=== PATIENT | male | born 1965 | race Caucasian/White ===

== ENCOUNTER 2016-10-23 18:38 | Inpatient (IN) ==
[2016-10-23] MEDS ORDERED: *HR* FentaNYL (PF) 100 MCG/2 ML VIAL IVP ONE (20:51)
[2016-10-23] MEDS ORDERED: Lidocaine/EPI 1:100k 1% 20 ML VIAL INFILT ONE (20:51)
[2016-10-23] MEDS ORDERED: Piperacillin/Tazobactam 4.5 GM in D5% in Water (Mini-Bag+) 100 ML IVPB ONE (21:43)
--- NOTE | 2016-10-23 21:43 | Emergency Department Note ---
Disposition Clinical Impression: Facial cellulitis Abscess of skin or subcutaneous tissue Qualifiers: Site of cutaneous abscess: face Qualified Code(s): L02.01 - Cutaneous abscess of face Disposition: Admitted As Inpatient Condition: Good Referrals: Lemuel Sun MD [Primary Care Provider] - Forms: ED Satisfaction Letter Time of Disposition: 21:48 Skin/Abscess/FB HPI Chief complaint: ED Skin/Abscess/Foreign Body Stated complaint: sent for admission per Dr. Sun Time Seen by Provider: 10/23/16 20:42 Source: patient, family Mode of arrival: ambulatory Limitations: no limitations Nursing Notes Reviewed: Yes Vital Signs Reviewed: Yes HPI Narrative: 41-year-old male with history of HIV without AIDS presents with outpatient diagnosis of left-sided facial cellulitis. He was sent in for treatment by his primary care physician. He states that he had a bump in the left side of his mustache that was red and painful that began 2 or 3 days ago. Since then, he has had redness surrounding the area that has been painful along with swelling to the left side of his face. Yesterday, he was seen in the [place] emergency department for this and started on antibiotics. Today, he was seen by his primary care physician in follow-up who sent him in for IV antibiotics. He denies any pain with motion of his eye, trismus, vomiting, nausea, fever or chills, respiratory symptoms, GI or symptoms. Home Medications Medication Instructions Recorded Confirmed Clopidogrel [Plavix] 75 mg PO DAILY 12/31/15 10/23/16 Emtricitabine/Tenofovir [Truvada] 1 tab PO DAILY 10/23/16 10/23/16 Gabapentin [Gabapentin] 800 mg PO TID 10/23/16 10/23/16 Lopinavir/Ritonavir [Kaletra] 2 tab PO BID 10/23/16 10/23/16 Meloxicam [Meloxicam] 15 mg PO DAILY 10/23/16 10/23/16 Mirtazapine [Mirtazapine] 30 mg PO HS 10/23/16 10/23/16 Previous Rx's Medication Instructions Recorded Clindamycin HCl [Cleocin HCl] 150 mg PO QID #40 capsule 10/22/16 Sulfamethoxazole/Trimeth DS 1 each PO BID #20 tablet 10/22/16 [Bactrim DS] Tramadol HCl [Ultram] 50 mg PO QID PRN #14 tab 10/22/16 Allergies Allergy/AdvReac Type Severity Reaction Status Date / Time No Known Allergies Allergy Verified 12/31/15 07:54 All systems ED: reviewed and negative except as stated. Past Medical History - Past Medical History Attestation: Yes The following information was validated with the patient. Source: patient Medical history: Reports: hepatitis, HIV/AIDS, other Psychiatric history: Reports: no psych history - Social History Smoking Status: Current every day smoker Smokeless Tobacco Status: No Alcohol use: Reports: none Drug use: Reports: none Physical Exam - Head Head exam: atraumatic, normocephalic, normal inspection - Eye Eye exam: Present: normal appearance, PERRL, EOMI and painless. - ENT There is indurated tender area to the left upper lip with small spontaneous purulent drainage. There is mild surrounding cellulitis superior to this. - Neck Neck exam: Present: normal inspection, full ROM, trachea midline - Chest Chest inspection: Present: normal inspection, symmetric chest wall rise - Respiratory Respiratory exam: Clear to auscultation bilaterally without wheezes rales or rhonchi Cardiovascular Cardiovascular exam: Present: regular rate, normal rhythm, normal heart sounds - Abdominal Exam Abdominal exam: Present: soft, Non-Tender. Absent: tenderness, distention, guarding, rebound, rigidity - Extremities Exam Extremities exam: Present: normal inspection, full ROM - Expanded Lower Extremity Exam Hip/Pelvis exam: Present: normal inspection, full ROM - Back Exam Back exam: Present: normal inspection, full ROM. Absent: tenderness, CVA tenderness (R), CVA tenderness (L) - Neurological Exam Neurological exam: Present: alert, oriented X3, CN II-XII intact - Psychiatric Psychiatric exam: Present: normal affect, normal mood - Skin Skin exam: Present: warm, dry, intact, normal color - General Limitations: no limitations General appearance: alert, in no apparent distress Course - Reevaluation(s) Reevaluation #1: Incision and drainage of the left upper lip abscess performed by myself. 2 mL' s of lidocaine 1% with epinephrine was used for anesthesia after prep with Betadine swab. A 1 cm linear incision was made with expulsion of a small amount of purulent drainage. Patient tolerated the procedure well without complications. Time: 21:46 Reevaluation #2: Patient accepted by Dr. Hernandez to the hospitalist service. Anaerobic wound culture and Gram stain obtained per his request. Time: 22:29 Vital Signs Temperature 98.7 F 10/23/16 18:55 Pulse Rate 95 10/23/16 18:55 Respiratory Rate 16 10/23/16 18:55 Blood Pressure 118/80 10/23/16 18:55 O2 Sat by Pulse Oximetry 95 10/23/16 18:55 Temperature 98.7 F 10/23/16 18:55 Pulse Rate 95 10/23/16 18:55 Respiratory Rate 16 10/23/16 18:55 Blood Pressure 118/80 10/23/16 18:55 O2 Sat by Pulse Oximetry 95 10/23/16 18:55 Oxygen Delivery Oxygen Delivery Room Air Skin/Abscess/Foreign Body - Lab Data Result diagrams: 10/23/16 21:36 10/23/16 21:36 Lab Results 10/23/16 10/23/16 Range/Units 21:36 21:36 WBC 16.0 H (4.3-11.1) K/mcL RBC 5.18 (4.19-5.50) M/mcL Hgb 16.1 (12.9-16.9) g/dL Hct 47.6 (37.5-50.1) % MCV 91.9 (83.0-100.0) fL MCH 31.1 (28.0-33.3) pg MCHC 33.8 (31.6-35.5) g/dL RDW 12.6 (11.5-14.5) % Plt Count 349 (140-400) K/mcL MPV 9.3 L (9.4-12.4) fL Immature Gran % 0.4 (0-4) % Seg Neutrophils % 74.4 % Lymphocytes % 17.9 % Monocytes % 5.6 % Eosinophils % 1.3 % Basophils % 0.4 % Neutrophils # 11.9 H (1.6-8.9) K/mcL Lymphocytes # 2.9 (0.6-4.6) K/mcL Monocytes # 0.9 (0.0-1.3) K/mcL Eosinophils # 0.2 (0.0-0.6) K/mcL Basophils # 0.1 (0.0-0.2) K/mcL Sodium 137 (136-145) mEq/L Potassium 3.5 (3.5-4.5) mEq/L Chloride 101 (98-109) mEq/L Carbon Dioxide 23 (19-29) mEq/L BUN 10 (8-26) mg/dL Creatinine 1.18 (0.72-1.25) mg/dL Est GFR ( Amer) > 60 (> 60) Est GFR (Non-Af Amer) > 60 (> 60) BUN/Creatinine Ratio 8 (6-26) Glucose 103 H (70-99) mg/dL Calculated Osmolality 283 (280-300) Calcium 10.2 (8.6-10.8) mg/dL Attestation Statement - Attestation Attestation: I examined this patient and my medical decision-making was reviewed with the FAILURE ANALYSIS TECHNICIAN/PA/Advanced Practice Nurse/Resident Physician. I agree with the documented findings, disposition and treatment plan as described except to the extent set forth below. Patient presents emergency Department with the chief complaint abscess on his face. Onset a few days ago. Sent in by PCP. On exam the patient has erythema and fluctuance to the left mandibular area. Plan. I&D performed with minimal result. Patient is on IV antibiotic. We will admit to hospitalists with concern for his immunocompromise secondary to his HIV.
[2016-10-23] MEDS ORDERED: Vancomycin 1,500 MG in D5% in Water 250 ML IVPB STA (21:44)
[2016-10-23 21:47] LABS: Basophils # 0.1 K/mcL (0.0-0.2); Basophils % 0.4 %; Eosinophils # 0.2 K/mcL (0.0-0.6); Eosinophils % 1.3 %; Hematocrit 47.6 % (37.5-50.1); Hemoglobin 16.1 g/dL (12.9-16.9); Immature Granulocytes % 0.4 % (0-4); Lymphocytes # 2.9 K/mcL (0.6-4.6); Lymphocytes % 17.9 %; Mean Corpuscular HGB Conc 33.8 g/dL (31.6-35.5); Mean Corpuscular Hemoglobin 31.1 pg (28.0-33.3); Mean Corpuscular Volume 91.9 fL (83.0-100.0); Mean Platelet Volume 9.3 fL (9.4-12.4); Monocytes # 0.9 K/mcL (0.0-1.3); Monocytes % 5.6 %; Neutrophils # 11.9 K/mcL (1.6-8.9); Platelet Count 349 K/mcL (140-400); Red Blood Count 5.18 M/mcL (4.19-5.50); Red Cell Distribution Width 12.6 % (11.5-14.5); Segmented Neutrophils % 74.4 %
[2016-10-23 22:01] LABS: BUN/Creatinine Ratio 8 (6-26); Blood Urea Nitrogen 10 mg/dL (8-26); Calcium 10.2 mg/dL (8.6-10.8); Carbon Dioxide 23 mEq/L (19-29); Chloride 101 mEq/L (98-109); Glucose 103 mg/dL (70-99); Osmolality,Calculated 283 (280-300); Potassium 3.5 mEq/L (3.5-4.5); Sodium 137 mEq/L (136-145); eGFR For African Americans > 60 (> 60); eGFR For Non-African Americans > 60 (> 60)
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
[2016-10-24] MEDS ORDERED: Vancomycin 1,250 MG in D5% in Water 250 ML IVPB SCH (03:00)
[2016-10-24] MEDS: *HR* Heparin 5,000 UNIT/ML VIAL SQ SCH ×3 (06:23→22:28)
[2016-10-24] MEDS: Gabapentin 400 MG CAPSULE PO SCH ×3 (09:59→21:04)
[2016-10-24] MEDS: Piperacillin/Tazobactam 3.375 GM in D5% in Water (Mini-Bag+) 100 ML IVPB SCH ×2 (10:00→15:43)
[2016-10-24] MEDS: Vancomycin 1,250 MG in D5% in Water 250 ML IVPB SCH ×2 (10:10→22:28)
[2016-10-24] MEDS: traMADol 50 MG TABLET PO PRN (10:10)
[2016-10-24] MEDS ORDERED: Acetaminophen 325 MG TABLET PO PRN (11:39)
[2016-10-24] MEDS ORDERED: Ibuprofen 400 MG TABLET PO PRN (11:40)
--- NOTE | 2016-10-24 12:55 | Infectious Disease Consult ---
Date of Encounter: 10/24/16 Time of Encounter: 12:55 Assessment and Plan (1) Sinusitis, acute Status: Acute Assessment and plan: Noted on the CT facial Likely the cause of the patient's facial cellulitis Patient is on vancomycin and Zosyn Agree with current antibiotics Will tailor antibiotics and switched to orals on discharge Probably due to combination of Augmentin and Bactrim or clindamycin Qualifiers: Sinusitis location: maxillary Recurrence: not specified as recurrent Qualified Code(s): J01.00 - Acute maxillary sinusitis, unspecified (2) IV drug user Status: Acute Assessment and plan: Last time he used IV drugs was 4 months ago (3) Facial cellulitis Status: Acute Assessment and plan: Likely secondary to sinusitis, it could be due to a pimple on the lip. Patient started on vancomycin and Zosyn, doing significantly better, continue current antibiotic regimen. Once patient continues to improve, we'll switch him to Bactrim and Augmentin to finish a 14 day course. (4) HIV disease Status: Acute Assessment and plan: Diagnosed approximately 15 years ago CD4 within normal limit HIV viral load around 60 Patient hasn't had labs done since May Check HIV status and CD4 now Patient tells me that he is compliant with his antiretroviral Continue Kaletra and Truvada Patient follow-up with Dr. Sun as an outpatient. (5) Hepatitis C Status: Chronic Assessment and plan: Consider treating once the patient has been clean from IV drug use Defer to Dr. Sun and Dr. Maciel as an outpatient. Qualifiers: Viral hepatitis chronicity: unspecified Hepatic coma status: without hepatic coma Qualified Code(s): B19.20 - Unspecified viral hepatitis C without hepatic coma Infectious Disease HPI - Data of Consult Patient: new to practice Consult date: 10/24/16 Requesting Physician: Vinay Davis Primary Care Provider: Lemuel Sun MD - Consult Narrative Reason for consult: cellulitis, HIV and hepatitis C History of present illness: Mr. Fall is a 51 year old male Patient is a 51-year-old gentleman admitted to [place] on 10/23/2016 with facial cellulitis, we are asked to evaluate the patient because of facial cellulitis, HIV disease and hepatitis C. Patient is a 51-year-old gentleman who was diagnosed with HIV apparently 20 years ago currently taking Truvada and boosted lopinavir, also has hepatitis C. He tells me that he is a recent IV drug user, last time used IV drugs was 4 months ago and then was sent to rehabilitation. Patient tells me he acquired HIV from his .Patients HIV workup from May 2016 revealed viral load of 45 and CD4 586. Patient is currently on Kaletra and Truvada. Hep C profile reveals a HCV RNA of 8.2 million. Apparently patient was in the usual state of health until Saturday when he woke up and he found a pimple on his left upper lip. He stated that he did not manipulate it he just got a little bit. On further questioning patient has had chronic sinusitis for quite some time. Patient denied any fevers or chills. No rigors. Patient states that he started having facial swelling on Saturday with erythema pain and swelling was so severe that his eye was closed shut. Since admission, patient has been afebrile, no tachycardia, WBC was 16,000 with normal differential. Cultures no growth to date. A CT sinuses was done which revealed left mid and lower facial cellulitis. Limited assessment for abscess by noncontrast CT. Severe left maxillary sinusitis. Currently patient tells me that he is feeling better clinically. The swelling has improved and the pain has improved. Patient tells me that he has a headache though. Patient denies any chest pain or shortness of breath. No cough. No nausea or vomiting. No diarrhea. No urinary symptoms. No joint pain or effusion. No rash. CC: Vinay Davis Past Med Surg Social Fam HX - Past Medical History Medical history: hepatitis, HIV/AIDS, other Psychiatric history: no psych history - Social History Smoking Status: Current every day smoker Smokeless Tobacco Status: No Alcohol use: none Drug use: none - Family History Mother Adopted: No Family Member Ethnicity: Non- Twin of Family Member: Yes, Identical Living Status: Still Living Hx Family Cardiac Disorders: No Hx Family Respiratory Disorders: No Hx Family Cancer: Yes (sister lymph nodes) Hx Family GI Disorders: No Hx Family Genitourinary Disorders: No Hx Family Endocrine Disorder: No Hx Family Musculoskeletal Disorders: No Hx Family Neuromuscular Disorders: No Hx Family Neurologic Disorders: No Hx Family HEENT Disorders: No Hx Family Reproductive Disorders: No Hx Family Psychosocial Disorders: No Hx Family Medical Disorders: No Infectious Disease-CN:Meds Clopidogrel [Plavix] 75 mg PO DAILY 12/31/15 [History] Clindamycin HCl [Cleocin HCl] 150 mg PO QID #40 capsule 10/22/16 [Rx] Sulfamethoxazole/Trimeth DS [Bactrim DS] 1 each PO BID #20 tablet 10/22/16 [Rx] Tramadol HCl [Ultram] 50 mg PO QID PRN #14 tab 10/22/16 [Rx] Emtricitabine/Tenofovir [Truvada] 1 tab PO DAILY 10/23/16 [History] Gabapentin [Gabapentin] 800 mg PO TID 10/23/16 [History] Lopinavir/Ritonavir [Kaletra] 2 tab PO BID 10/23/16 [History] Meloxicam [Meloxicam] 15 mg PO DAILY 10/23/16 [History] Mirtazapine [Mirtazapine] 30 mg PO HS 10/23/16 [History] Allergies No Known Allergies Allergy (Verified 12/31/15 07:54) Review of systems: 10 point review of systems done, pertinent positives and negatives are mentioned in the history of present illness. Exam - Constitutional Vitals: Temp Pulse Resp BP Pulse Ox 98.4 F 96 14 95/61 96 10/24/16 10:31 10/24/16 10:31 10/24/16 10:31 10/24/16 10:31 10/24/16 10:31 General appearance: no acute distress, no febrile - Head Head exam: Present: atraumatic, normocephalic - Eye Eye exam: Present: EOMI, PERRL, sclera anicteric - ENT ENT exam: Present: mucous membranes dry Additional comments: No oral lesions. Tenderness over the left maxillary sinus - Neck Neck exam: Present: full ROM. Absent: meningismus - Respiratory Respiratory exam: Present: CTAB. Absent: stridor, wheezes - Cardiovascular Cardiovascular exam: Present: RRR, +S1, +S2 Additional comments: No murmur - GI/Abdominal GI/Abdominal exam: Present: normal bowel sounds, soft. Absent: tenderness - Extremities Exam Extremities exam: Present: full ROM, normal inspection. Absent: pedal edema - Back Exam Back exam: Present: full ROM, normal inspection - Neurological Exam Neurological exam: Present: alert, oriented X3. Absent: facial droop, speech deficit - Psychiatric Psychiatric exam: Present: anxious - Skin Skin exam: Absent: rash Additional comments: No jaundice Infectious Disease CN: Results - Labs CBC & Chem 7: 10/23/16 21:36 10/23/16 21:36 Consult Discharge Plan - Plan Referrals: Lemuel Sun MD [Primary Care Provider] -
--- NOTE | 2016-10-24 14:59 | Event Note ---
<Gamal Hernández - Last Filed: 10/24/16 14:41> Date of Encounter: 10/24/16 Time of Encounter: 08:45 Mr. Fall 51-year-old male with a history of hepatitis C, HIV, IV drug use, smoker was admitted early this morning with left super labial infraocular cellulitis. He was started on vancomycin and Zosyn for antibiotic coverage. This morning he is seen the patient bedside he complains of tenderness in his left face where the cellulitis is located. Some mild headache and neck pain. He said that he has chronic neck pain that is exacerbated with [place] his head forward or extending. He denies any photophobia, confusion, change in vision, blurry vision, double vision, trouble with thought process, chest pain, chest pressure, palpitations, shortness of breath, abdominal pains, nausea, vomiting, diarrhea or constipation. He feels that the swelling around his left lip has improved and swelling under his eye has gone down. It is less red than when he came in. He is a daily smoker and is upset that he cannot go and smoke. Vitals: Temperature 98.4, heart rate 96, respirations 14, blood pressure 109/74 , oxygen saturation is 95% room air Laboratory results: WBCs 16.0 hemoglobin 16 and MCV 91 hematocrit 47.6 neutral count 11.9, sodium 137, potassium 3.5, chloride 101, creatinine 1.18, BUN 10 she is far greater than 60 CT scan of the sinuses/face: Left mid and lower facial cellulitis. Limited assessment of abscess by noncontrast CT. Severe left maxillary sinusitis. Physical examination: HEENT: Left super labial cellulitis with infra orbital swelling, swelling along the left nasal bridge. There appears to be crusted drainage purulent on the left super labial region. There is a hard collection in the super labial position. EOMI intact, pupils are equal and responsive to light, no pain to palpation of the eyelids, or with ocular movement. Neck is supple trachea is midline no masses, erythema or edema noticed Cardiac: Regular rate and rhythm positive S1-S2, radial pulses were 2+ bilateral symmetric Respiratory: Patient has diffuse expiratory wheeze, chest is symmetric bilateral choroidal respiratory effort Abdomen: Soft, nontender to palpation positive bowel sounds. Extremities symmetric bilateral, spontaneously moving all limbs without any noticeable deficiency. Assessment and plan 1. Left facial cellulitis: Patient demonstrates severe left maxillary sinusitis, patient is left facial swelling but also may be due to ingrown facial hair. Swelling and erythema are improving after starting vancomycin and Zosyn. Patient is a HIV positive, CD4 count was reviewed and was within normal limits. Infectious disease has been consult and has evaluated the patient, the recommendations are to continue IV antibiotics and will discharge with home antibiotics. I spoke with Dr. Peralta regarding this patient and she recommended I&D if abscess is present. Plan: - Continue vancomycin and Zosyn IV - If consolidation persists may require I and D of the left super labial region. - Face Gram stain performed on 10/23/2016 so far demonstrates WBCs and gram- positive cocci. 2. History of IV drug use Mr. Fall says that it has been a few months since his last use of IV drugs. With his history of IV drug use and currently not using will avoid opiate pain medications. 3. HIV positive Last CD4 count was in May 2016 and was in normal limits, HIV viral load at that time was 60. Infectious disease is following the patient and will continue antiretrovirals. 4. Hepatitis C: Patient has known hepatitis C and history of IV drug use. <Vinay Davis R - Last Filed: 10/24/16 17:46> Date of Encounter: 10/24/16 I examined this patient and my medical decision-making was reviewed with the GARDEN MACHINERY MECHANIC/PA/Advanced Practice Nurse/Resident Physician. I agree with the documented findings, disposition and treatment plan as described except to the extent set forth below. Follow ID input, Continue iv antibiotics. Follow cultures. CT noted. D/W patient , D/W resident Dr. Hernández.
[2016-10-24] MEDS: Mirtazapine 15 MG TABLET PO SCH (21:04)
[2016-10-24] MEDS: Nicotine 14 MG PATCH.TD24 TD SCH (22:28)
[2016-10-25] MEDS: Piperacillin/Tazobactam 3.375 GM in D5% in Water (Mini-Bag+) 100 ML IVPB SCH ×3 (00:14→21:40)
[2016-10-25 09:02] LABS: Basophils # 0.1 K/mcL (0.0-0.2); Basophils % 0.7 %; Eosinophils # 0.3 K/mcL (0.0-0.6); Eosinophils % 3.3 %; Hematocrit 47.2 % (37.5-50.1); Immature Granulocytes % 0.3 % (0-4); Immature Platelets 2.5 % (1.1-6.1); Lymphocytes # 2.1 K/mcL (0.6-4.6); Lymphocytes % 23.4 %; Mean Corpuscular HGB Conc 33.9 g/dL (31.6-35.5); Mean Corpuscular Hemoglobin 31.4 pg (28.0-33.3); Mean Corpuscular Volume 92.5 fL (83.0-100.0); Mean Platelet Volume 9.1 fL (9.4-12.4); Monocytes # 0.9 K/mcL (0.0-1.3); Monocytes % 9.7 %; Neutrophils # 5.6 K/mcL (1.6-8.9); Platelet Count 369 K/mcL (140-400); Red Cell Distribution Width 12.5 % (11.5-14.5); Segmented Neutrophils % 62.6 %
[2016-10-25 09:16] LABS: Alanine Aminotransferase 24 Units/L (0-55); Albumin/Globulin Ratio 0.7 (1.1-2.2); Alkaline Phosphatase 77 Units/L (38-126); Aspartate Amino Transferase 17 Units/L (5-34); BUN/Creatinine Ratio 9 (6-26); Bilirubin,Total 0.6 mg/dL (0.2-1.2); Blood Urea Nitrogen 12 mg/dL (8-26); Calcium 9.7 mg/dL (8.6-10.8); Carbon Dioxide 24 mEq/L (19-29); Chloride 103 mEq/L (98-109); Globulin 4.6 g/dL (2.4-3.5); Glucose 94 mg/dL (70-99); Osmolality,Calculated 286 (280-300); Potassium 4.1 mEq/L (3.5-4.5); Sodium 138 mEq/L (136-145); Total Protein 7.6 g/dL (6.0-8.3); eGFR For African Americans > 60 (> 60); eGFR For Non-African Americans 58 (> 60)
[2016-10-25] MEDS: *HR* Heparin 5,000 UNIT/ML VIAL SQ SCH ×3 (09:25→23:19)
[2016-10-25] MEDS: Gabapentin 400 MG CAPSULE PO SCH ×3 (09:26→20:29)
[2016-10-25] MEDS: Nicotine 14 MG PATCH.TD24 TD SCH (09:26)
[2016-10-25] MEDS: traMADol 50 MG TABLET PO PRN ×2 (09:26→15:17)
--- NOTE | 2016-10-25 10:47 | Internal Med Progress Note ---
<Gamal Hernández - Last Filed: 10/25/16 13:17> Date of Encounter: 10/25/16 Time of Encounter: 08:00 - Assessment and plan (1) Facial cellulitis Current Visit: Yes Status: Acute Assessment and plan: Patient demonstrates severe left maxillary sinusitis, patient is left facial swelling but also may be due to ingrown facial hair. Swelling and erythema are improving after starting vancomycin and Zosyn. Patient is a HIV positive, CD4 count was reviewed and was within normal limits. Infectious disease has been consult and has evaluated the patient, the recommendations are to continue IV antibiotics and will discharge with home antibiotics. 10/25/2016: Facial cellulitis is improving. Continued on broad spectrum antibiotics. No obstruction of airway, or orbital or periorbital involvement. Plan: - Continue vancomycin IV - Face Gram stain performed on 10/23/2016 so far demonstrates WBCs and gram- positive cocci. Awaiting final microbial classification. (2) Abscess, lip Current Visit: No Status: Acute Assessment and plan: There is a abscess of the superior left lip that started draining spontaneously last evening after CT with contrast of the face for evaluation of his facial collection. CT of the face with contrast demonstrates a superficial subcutaneous avscess of the left upper lip with surrounding left facial cellulitis extending into the left upper neck. Reactive upper cervical adenopathy. Acute left maxillary sinusitis. Plan: - Abscess has been draining, may need further I&D to drain the abscess. - Continue Vancomycin as the cultures still show gram + Cocci. Patient is on IV antbiotics and will obtain further wound culture but they may result negative. - Consult ENT as patient has severe maxillary sinusitis with facial abscess and left neck cellulitis in an patient with HIV. (3) HIV disease Current Visit: Yes Status: Acute Assessment and plan: Last CD4 count was in May 2016 and was in normal limits, HIV viral load at that time was 60. Infectious disease is following the patient and will continue antiretrovirals. (4) Sinusitis, acute Current Visit: Yes Status: Acute Assessment and plan: Patient has acute left maxillary sinusitis seen on imaging studies. Currently on Vancomycin. Continue to monitor symptoms. afebrile, Leukeocytosis resolving. Qualifiers: Sinusitis location: maxillary Recurrence: not specified as recurrent Qualified Code(s): J01.00 - Acute maxillary sinusitis, unspecified (5) Hepatitis C Current Visit: Yes Status: Chronic Assessment and plan: Patient has known hepatitis C and history of IV drug use. Qualifiers: Viral hepatitis chronicity: unspecified Hepatic coma status: without hepatic coma Qualified Code(s): B19.20 - Unspecified viral hepatitis C without hepatic coma (6) DVT prophylaxis Current Visit: Yes Status: Acute Assessment and plan: Heparin SQ Q8hrs. - Subjective Interval history: Mr. Fall has been seen and evaluated at patient bedside this am. He is awake , alert and interacting in no acute distress. He feels his facial swelling is improved, and he had periodic draining purulent discharge from his supra-labial region over night. He denies fevers, chills or night sweating. He denies dental pain, swelling in his mouth or throat. He does continue to have tenderness to his left upper lip and complains of tenderness of his left neck. He continues to have a left sided headache and neck discomfort. He does admit to headaches prior but feels this is more discomforting from baseline. He denies an chest pain, palpitations, chest pressure, SOB, abdominal pain, constipation, diarrhea , extremity swelling. - Constitutional Vitals: Temp Pulse Resp BP Pulse Ox 99.0 F 85 16 117/75 94 L 10/25/16 07:55 10/25/16 07:55 10/25/16 07:55 10/25/16 07:55 10/25/16 07:55 General appearance: Present: cooperative, A&O X 3, pleasant, no acute distress - Head Head exam: Present: atraumatic, normocephalic - ENT ENT exam: Present: mucous membranes moist Additional comments: Improving cellulitis of the left supralabial region, firm nodule roughly 1cm in diameter with superficial crusted purulent drainage. No infra or sanjeev-orbital edema or erythema. EOMI. tenderness to palpation of the supratemporal region on the left, neck examined and no erythema or edema. Tenderness to palpation inferior to the left angle of the mandible. Trachea is midline, supple. Oral cavity, edentulous, no erythema or edema of the gums or palate. no noticable oral swelling or posterior oralpharynx edema or erythema. Patients speech is appropriate. No stridor. - Respiratory Respiratory exam: Present: CTAB. Absent: accessory muscle use, rales, rhonchi, wheezes - Cardiovascular Cardiovascular exam: Present: RRR, +S1, +S2. Absent: diastolic murmur, gallop, rubs, systolic murmur - GI/Abdominal GI/Abdominal exam: Present: normal bowel sounds, soft, no peritoneal signs. Absent: distended, tenderness - Extremities Exam Extremities exam: Present: warm, radial pulses palpable and symetrical. Absent : calf tenderness, cyanotic, pedal edema - Neurological Exam Neurological exam: Present: CN II-XII intact, oriented X3, no focal deficits. Absent: pronater drift, facial droop, speech deficit - Skin Skin exam: Present: dry, intact Internal Medicine: Result - Labs CBC & Chem 7: 10/25/16 08:55 10/25/16 08:55 Labs: Short CBC 10/25/16 Range/Units 08:55 WBC 9.0 (4.3-11.1) K/mcL Hgb 16.0 (12.9-16.9) g/dL Hct 47.2 (37.5-50.1) % Plt Count 369 (140-400) K/mcL Neutrophils # 5.6 (1.6-8.9) K/mcL BMP 10/25/16 08:55 Sodium 138 Potassium 4.1 Chloride 103 Carbon Dioxide 24 BUN 12 Creatinine 1.32 H Glucose 94 Calcium 9.7 Liver Function 10/25/16 Range/Units 08:55 Total Bilirubin 0.6 (0.2-1.2) mg/dL AST 17 (5-34) Units/L ALT 24 (0-55) Units/L Alkaline Phosphatase 77 (38-126) Units/L Albumin 3.0 L (3.5-5.0) g/dL Consult Discharge Plan - Plan Referrals: Lemuel Sun MD [Primary Care Provider] - 11/01/16 1:20 pm <Vinay Davis - Last Filed: 10/25/16 17:01> - Constitutional Vitals: Temp Pulse Resp BP Pulse Ox 98.3 F 78 17 117/97 97 10/25/16 15:54 10/25/16 15:54 10/25/16 15:54 10/25/16 15:54 10/25/16 15:54 Internal Medicine: Result - Labs CBC & Chem 7: 10/25/16 08:55 10/25/16 08:55 Labs: Short CBC 10/25/16 Range/Units 08:55 WBC 9.0 (4.3-11.1) K/mcL Hgb 16.0 (12.9-16.9) g/dL Hct 47.2 (37.5-50.1) % Plt Count 369 (140-400) K/mcL Neutrophils # 5.6 (1.6-8.9) K/mcL BMP 10/25/16 08:55 Sodium 138 Potassium 4.1 Chloride 103 Carbon Dioxide 24 BUN 12 Creatinine 1.32 H Glucose 94 Calcium 9.7 Liver Function 10/25/16 Range/Units 08:55 Total Bilirubin 0.6 (0.2-1.2) mg/dL AST 17 (5-34) Units/L ALT 24 (0-55) Units/L Alkaline Phosphatase 77 (38-126) Units/L Albumin 3.0 L (3.5-5.0) g/dL - Attending Attestation I examined this patient and my medical decision-making was reviewed with the FARM CROPS TEACHER/PA/Advanced Practice Nurse/Resident Physician. I agree with the documented findings, disposition and treatment plan as described except to the extent set forth below. D/W Dr. Hernández, will continue with iv antibiotics, adjust therapy according to cultures. D/W patient.
[2016-10-25] MEDS: Vancomycin 1,250 MG in D5% in Water 250 ML IVPB SCH ×2 (12:24→23:19)
[2016-10-25] MEDS: 0.9 % Sodium Chloride 1,000 ML IVC SCH ×2 (12:24→20:30)
--- NOTE | 2016-10-25 14:26 | ENT - Consult Note ---
Date of Encounter: 10/25/16 Time of Encounter: 14:24 Assessment and Plan (1) Facial cellulitis Current Visit: Yes Status: Acute (2) Abscess, lip Current Visit: No Status: Acute Small abscess of the upper lip, the scab from the previous draining abscess was removed at the bedside and the abscess was probed with a hemostat to determine the depth of the abscess/septations. Abscess is very superficial in nature and did not extend into deeper tissue. Very small amount of purulence was obtained with removing the outer crest. This did not extend into the nasal cavity. Abscess was limited to the upper lip. Patient was surrounding induration. Previous culture was taken and awaiting final results. At this point would treat as MRSA. I did apply topical mupirocin ointment after a full examination of the abscess. Will place patient on topical mupirocin ointment to that abscess site as well as in the bilateral nares 3 times a day. Continue current antibiotics for MRSA coverage. No further intervention by ENT as needed at this time as it does not appear to extend in the nasal cavity or into the neck. (3) Maxillary sinusitis, chronic Current Visit: Yes Status: Acute Will start patient on nasal saline on a daily basis. Patient currently on vancomycin which should help clear this infection and reduce swelling in left maxillary sinus. History of Present Illness Consult date: 10/25/16 Reason for ENT Consult: other (facial abscess/upper lip abscess) History of present illness: Patient is a 51-year-old male recently admitted for left facial pain and swelling. Patient began having this pain and swelling 5 days ago. Patient was admitted for treatment of this area. Patient with a past medical history significant for HIV as well as hep C. Patient has had CT scan performed showing small collection in the area of the left face, upper lip. Patient also with evidence of a sinusitis and left maxillary sinus. Patient has been seen by ID but ENT was consult for further evaluation to determine if any intervention is needed. States that area began to drain by itself yesterday. Past Med Surg Social Fam HX - Past Medical History Medical history: hepatitis, HIV/AIDS, other Psychiatric history: no psych history - Social History Smoking Status: Current every day smoker Smokeless Tobacco Status: No Alcohol use: none Drug use: none - Family History Mother Adopted: No Family Member Ethnicity: Non- Twin of Family Member: Yes, Identical Living Status: Still Living Hx Family Cardiac Disorders: No Hx Family Respiratory Disorders: No Hx Family Cancer: Yes (sister lymph nodes) Hx Family GI Disorders: No Hx Family Genitourinary Disorders: No Hx Family Endocrine Disorder: No Hx Family Musculoskeletal Disorders: No Hx Family Neuromuscular Disorders: No Hx Family Neurologic Disorders: No Hx Family HEENT Disorders: No Hx Family Reproductive Disorders: No Hx Family Psychosocial Disorders: No Hx Family Medical Disorders: No Medications and Allergies Clopidogrel [Plavix] 75 mg PO DAILY 12/31/15 [History] Clindamycin HCl [Cleocin HCl] 150 mg PO QID #40 capsule 10/22/16 [Rx] Sulfamethoxazole/Trimeth DS [Bactrim DS] 1 each PO BID #20 tablet 10/22/16 [Rx] Tramadol HCl [Ultram] 50 mg PO QID PRN #14 tab 10/22/16 [Rx] Emtricitabine/Tenofovir [Truvada] 1 tab PO DAILY 10/23/16 [History] Gabapentin [Gabapentin] 800 mg PO TID 10/23/16 [History] Lopinavir/Ritonavir [Kaletra] 2 tab PO BID 10/23/16 [History] Meloxicam [Meloxicam] 15 mg PO DAILY 10/23/16 [History] Mirtazapine [Mirtazapine] 30 mg PO HS 10/23/16 [History] Allergies No Known Allergies Allergy (Verified 12/31/15 07:54) ENT - ROS - EENT Nose, mouth and throat: facial pain, nasal discharge ENT Exam Initial Vital Signs Temp Pulse Resp BP Pulse Ox 98.7 F 95 16 118/80 95 10/23/16 18:55 10/23/16 18:55 10/23/16 18:55 10/23/16 18:55 10/23/16 18:55 Exam Initial Vital Signs Temp Pulse Resp BP Pulse Ox 98.7 F 95 16 118/80 95 10/23/16 18:55 10/23/16 18:55 10/23/16 18:55 10/23/16 18:55 10/23/16 18:55 - General physical appearance well developed, well nourished - Eyes PERRL, normal ocular movement - ENT dry mucosa, Other (Patient is edentulous, induration of the left upper lip with crust at central portion, crust removed, small amount of purulence obtained, no deep abscess pocket or septations present with probing with hemostat. Nasal mucosa dry with some crusted mucous, this was cleared after moistened with nasal spray, no purulence from middle meatus bilaterally on nasal endoscopy.) - Neck no masses, trachea midline, no lymphadectomy - Respiratory normal expansion, normal respiratory effort - Psychiatric oriented to time, oriented to person, oriented to place, speech is normal Results - Labs 10/25/16 08:55 10/25/16 08:55 Abnormal lab results MPV 9.1 fL (9.4-12.4) L 10/25/16 08:55 Creatinine 1.32 mg/dL (0.72-1.25) H 10/25/16 08:55 Est GFR (Non-Af Amer) 58 (> 60) L 10/25/16 08:55 POC Glucose 111 (58-89) H 10/24/16 12:01 Albumin 3.0 g/dL (3.5-5.0) L 10/25/16 08:55 Globulin 4.6 g/dL (2.4-3.5) H 10/25/16 08:55 Albumin/Globulin Ratio 0.7 (1.1-2.2) L 10/25/16 08:55 Diabetes panel 10/25/16 Range/Units 08:55 Sodium 138 (136-145) mEq/L Potassium 4.1 (3.5-4.5) mEq/L Chloride 103 (98-109) mEq/L Carbon Dioxide 24 (19-29) mEq/L BUN 12 (8-26) mg/dL Creatinine 1.32 H (0.72-1.25) mg/dL Glucose 94 (70-99) mg/dL Calcium 9.7 (8.6-10.8) mg/dL AST 17 (5-34) Units/L ALT 24 (0-55) Units/L Alkaline Phosphatase 77 (38-126) Units/L Albumin 3.0 L (3.5-5.0) g/dL Calcium panel 10/25/16 Range/Units 08:55 Calcium 9.7 (8.6-10.8) mg/dL Albumin 3.0 L (3.5-5.0) g/dL Pituitary panel 10/25/16 Range/Units 08:55 Sodium 138 (136-145) mEq/L Potassium 4.1 (3.5-4.5) mEq/L Chloride 103 (98-109) mEq/L Carbon Dioxide 24 (19-29) mEq/L BUN 12 (8-26) mg/dL Creatinine 1.32 H (0.72-1.25) mg/dL Glucose 94 (70-99) mg/dL Calcium 9.7 (8.6-10.8) mg/dL Adrenal panel 10/25/16 Range/Units 08:55 Sodium 138 (136-145) mEq/L Potassium 4.1 (3.5-4.5) mEq/L Chloride 103 (98-109) mEq/L Carbon Dioxide 24 (19-29) mEq/L BUN 12 (8-26) mg/dL Creatinine 1.32 H (0.72-1.25) mg/dL Glucose 94 (70-99) mg/dL Calcium 9.7 (8.6-10.8) mg/dL Total Bilirubin 0.6 (0.2-1.2) mg/dL AST 17 (5-34) Units/L ALT 24 (0-55) Units/L Alkaline Phosphatase 77 (38-126) Units/L Albumin 3.0 L (3.5-5.0) g/dL All other labs normal. Consult Discharge Plan - Plan Referrals: Lemuel Sun MD [Primary Care Provider] - 11/01/16 1:20 pm
[2016-10-25] MEDS: Saline Nasal Spray 44 ML BOTTLE NS SCH ×2 (15:18→20:31)
--- NOTE | 2016-10-25 16:57 | ENT - Procedure Note ---
Date of procedure: 10/25/16 Pre-op diagnosis: Maxillary sinusitis, facial abscess Post-op diagnosis: same Procedure: Bilateral nasal endoscopy CPT 61884 Verbal informed consent was obtained for nasal endoscopy from the patient bilateral nares were sprayed with a 50:50 mixture of oxymetazoline 0.05% and 4% topical lidocaine. time was given to allow anesthesia and decongestion of the nasal cavities bilaterally. The 0 degree rigid endoscope was used to visualize the left and right nasal cavities, nasal airway and structures from the nares to the posterior choanae were evaluated, The scope was then removed and the same procedure repeated on the opposite side, Findings: Nasal mucosa was dry crusted mucous bilateral nasal cavities, middle meatus opened bilaterally no purulent drainage. No extension of facial abscess in the nasal cavity Anesthesia: topical Surgeon: Nancy Leonardo Estimated blood loss (cc): 0 Condition: stable
[2016-10-25] MEDS: Mirtazapine 15 MG TABLET PO SCH (20:30)
[2016-10-26] MEDS: Piperacillin/Tazobactam 3.375 GM in D5% in Water (Mini-Bag+) 100 ML IVPB SCH (05:52)
[2016-10-26] MEDS: *HR* Heparin 5,000 UNIT/ML VIAL SQ SCH (05:52)
[2016-10-26] MEDS: 0.9 % Sodium Chloride 1,000 ML IVC SCH (05:53)
[2016-10-26 06:19] LABS: Basophils # 0.1 K/mcL (0.0-0.2); Basophils % 0.6 %; Eosinophils # 0.3 K/mcL (0.0-0.6); Eosinophils % 3.1 %; Hematocrit 41.4 % (37.5-50.1); Hemoglobin 14.4 g/dL (12.9-16.9); Immature Granulocytes % 0.3 % (0-4); Lymphocytes # 1.9 K/mcL (0.6-4.6); Lymphocytes % 21.7 %; Mean Corpuscular HGB Conc 34.8 g/dL (31.6-35.5); Mean Corpuscular Hemoglobin 31.9 pg (28.0-33.3); Mean Corpuscular Volume 91.6 fL (83.0-100.0); Monocytes # 0.7 K/mcL (0.0-1.3); Monocytes % 7.7 %; Neutrophils # 5.9 K/mcL (1.6-8.9); Platelet Count 327 K/mcL (140-400); Red Blood Count 4.52 M/mcL (4.19-5.50); Red Cell Distribution Width 12.6 % (11.5-14.5); Segmented Neutrophils % 66.6 %
[2016-10-26 07:03] LABS: Alanine Aminotransferase 21 Units/L (0-55); Albumin 2.6 g/dL (3.5-5.0); Albumin/Globulin Ratio 0.7 (1.1-2.2); Alkaline Phosphatase 61 Units/L (38-126); Aspartate Amino Transferase 16 Units/L (5-34); BUN/Creatinine Ratio 11 (6-26); Bilirubin,Total 0.5 mg/dL (0.2-1.2); Blood Urea Nitrogen 12 mg/dL (8-26); Calcium 8.9 mg/dL (8.6-10.8); Carbon Dioxide 24 mEq/L (19-29); Chloride 107 mEq/L (98-109); Globulin 3.8 g/dL (2.4-3.5); Glucose 135 mg/dL (70-99); Osmolality,Calculated 288 (280-300); Potassium 4.2 mEq/L (3.5-4.5); Sodium 138 mEq/L (136-145); Total Protein 6.4 g/dL (6.0-8.3); eGFR For African Americans > 60 (> 60); eGFR For Non-African Americans > 60 (> 60)
[2016-10-26] MEDS: Nicotine 14 MG PATCH.TD24 TD SCH (08:10)
[2016-10-26] MEDS: Gabapentin 400 MG CAPSULE PO SCH (08:10)
[2016-10-26] MEDS: Saline Nasal Spray 44 ML BOTTLE NS SCH (08:11)
--- NOTE | 2016-10-26 10:15 | Discharge Summary ---
<Gamal Hernández - Last Filed: 10/26/16 12:58> Date of Encounter: 10/26/16 Time of Encounter: 10:13 - Discharge Diagnosis (1) Facial cellulitis Priority: Primary Status: Acute (2) Abscess, lip Priority: Primary Status: Acute (3) HIV disease Priority: Secondary Status: Acute (4) Sinusitis, acute Priority: Secondary Status: Acute Qualifiers: Sinusitis location: maxillary Recurrence: not specified as recurrent Qualified Code(s): J01.00 - Acute maxillary sinusitis, unspecified (5) Hepatitis C Priority: Secondary Status: Chronic Qualifiers: Viral hepatitis chronicity: unspecified Hepatic coma status: without hepatic coma Qualified Code(s): B19.20 - Unspecified viral hepatitis C without hepatic coma (6) DVT prophylaxis Priority: Secondary Status: Acute - Discharge Medications Prescriptions: Amoxicillin/Clavulanate [Augmentin] 875 mg PO BIDWM 12 Days Mupirocin [Bactroban Oint] 1 appl NS TID #1 tube Sulfamethoxazole/Trimeth DS [Bactrim Ds] 1 each PO BID #24 tablet Home Medications: Clopidogrel [Plavix] 75 mg PO DAILY 12/31/15 [History] Tramadol HCl [Ultram] 50 mg PO QID PRN #14 tab 10/22/16 [Rx] Emtricitabine/Tenofovir [Truvada] 1 tab PO DAILY 10/23/16 [History] Gabapentin 800 mg PO TID 10/23/16 [History] Lopinavir/Ritonavir [Kaletra] 2 tab PO BID 10/23/16 [History] Meloxicam 15 mg PO DAILY 10/23/16 [History] Mirtazapine 30 mg PO HS 10/23/16 [History] Amoxicillin/Clavulanate [Augmentin] 875 mg PO BIDWM 12 Days 10/26/16 [Rx] Mupirocin [Bactroban Oint] 1 appl NS TID #1 tube 10/26/16 [Rx] Sulfamethoxazole/Trimeth DS [Bactrim Ds] 1 each PO BID #24 tablet 10/26/16 [Rx] Allergies/Adverse Reactions: Allergies No Known Allergies Allergy (Verified 12/31/15 07:54) Date of admission: 10/25/16 08:41 Primary care physician: Lemuel Sun MD Consults: 10/25/16 11:35 Consult to ENT [CONS] Routine Consulting Provider: KATHERINE Gerber Reason for Consult: severe sinusitis, facial abscess Call Completed: Yes Discharging clinician: Gamal Hernández Anticipated date of discharge: 10/26/16 - Patient Status Disposition: Home, Self-Care Condition: Good Functional capacity at discharge: independent ambulation Overall status at discharge: patient is progressing back to baseline - Discharge Instructions Instructions: Cellulitis (DC) Follow Up With: Lemuel Sun MD [Primary Care Provider] - 11/01/16 1:20 pm Additional Instructions: Follow up with your PCP in the next 3-5 days. Take medications as prescribed. If you have recurrence of facial swelling or new face/neck swelling or any other concerning medical symptoms return to the emergency department to be evaluated. - Diet and Activity Activity: increase activity as tolerated Diet: advance to your usual diet Interval History: . HMr. Fall was admitted to [facility] with left sided facial cellulitis on 10/24/2016. He was admitted to the general medical floor and started on broad spectrum antibiotics. His vitals have been stable and laboratory results were reviewed. He had a Leukocytosis that resolved by day 2 of her inpatient stay. His facial swelling continued to improve daily after started on broad spectrum antibiotics. Wound culture collected on 10/23/2016 grew gram positive cocci and zosyn was removed from antibiotic coverage. ENT was consulted as he formulated an abscess on his left upper lip. CT imaging of his face and sinuses demonstrated severe left maxillary sinusitis, left upper labial cellulitis and abscess. At no point during his inpatient stay did he have ocular involvement or disruption to extra-ocular movement. His wound culture resulted with MSSA on 10/26/2016. On 10/26/2016 Mr. Fall was seen and examined at patient bedside. He was examined and deemed stable for discharge with home antibiotics and close follow up. This plan was discussed with Mr. Fall who demonstrated understanding and agreement to this plan. Hospital course: Mr. Fall was admitted to [facility] with left sided facial cellulitis on 10/24/2016. He was admitted to the general medical floor and started on broad spectrum antibiotics. His vitals have been stable and laboratory results were reviewed. He had a Leukocytosis that resolved by day 2 of her inpatient stay. His facial swelling continued to improve daily after started on broad spectrum antibiotics. Wound culture collected on 10/23/2016 grew gram positive cocci and zosyn was removed from antibiotic coverage. ENT was consulted as he formulated an abscess on his left upper lip. CT imaging of his face and sinuses demonstrated severe left maxillary sinusitis, left upper labial cellulitis and abscess. At no point during his inpatient stay did he have ocular involvement or disruption to extra-ocular movement. His wound culture resulted with MSSA on 10/26/2016. On 10/26/2016 Mr. Fall was seen and examined at patient bedside. He was examined and deemed stable for discharge with home antibiotics and close follow up. This plan was discussed with Mr. Fall who demonstrated understanding and agreement to this plan. - Time Spent with Patient Total time spent providing and/or coordinating discharge services: - Constitutional Vitals: Temp Pulse Resp BP Pulse Ox 98.3 F 69 16 111/70 97 10/26/16 07:04 10/26/16 07:04 10/26/16 07:04 10/26/16 07:04 10/26/16 07:04 General appearance: Present: cooperative, A&O X 3, pleasant, no acute distress - ENT ENT exam: Present: mucous membranes moist Additional comments: left supralabial edema is improved with crusted drainage on the upper left lip. Oral mucosa is moist, no signs of erythema or edema. - Neck Neck exam general surgery: Present: supple, trachea midline - Respiratory Respiratory exam: Present: CTAB. Absent: accessory muscle use, rales, rhonchi, wheezes - Cardiovascular Cardiovascular exam: Present: RRR, +S1, +S2. Absent: diastolic murmur, gallop, rubs, systolic murmur - GI/Abdominal GI/Abdominal exam: Present: normal bowel sounds, soft, no peritoneal signs. Absent: distended, tenderness - Extremities Exam Extremities exam: Present: warm, radial pulses palpable and symetrical. Absent : pedal edema - Neurological Exam Neurological exam: Present: CN II-XII intact, oriented X3, no focal deficits. Absent: pronater drift, facial droop, speech deficit - Psychiatric Psychiatric exam: Present: normal affect, normal mood - Skin Skin exam: Present: dry, intact <Vinay Davis - Last Filed: 10/26/16 13:27> Date of admission: 10/25/16 08:41 Primary care physician: Lemuel Sun MD Consults: 10/25/16 11:35 Consult to ENT [CONS] Routine Consulting Provider: ENT Zabrina Reason for Consult: severe sinusitis, facial abscess Call Completed: Yes Hospital course: Mr. Fall is a 51 year old male - Time Spent with Patient Total time spent providing and/or coordinating discharge services: - Constitutional Vitals: Temp Pulse Resp BP Pulse Ox 99.3 F 86 14 122/79 96 10/26/16 10:54 10/26/16 10:54 10/26/16 10:54 10/26/16 10:54 10/26/16 10:54 - Attending Attestation I examined this patient and my medical decision-making was reviewed with the CONFIGURATION ENGINEER/PA/Advanced Practice Nurse/Resident Physician. I agree with the documented findings, disposition and treatment plan as described except to the extent set forth below. D/W po antibioitcs.
[2016-10-26 10:55] VITALS: BP 122/79
[2016-10-26] MEDS: Vancomycin 1,250 MG in D5% in Water 250 ML IVPB SCH (12:20)
[2016-10-26] MEDS ORDERED: Aminoglycoside Consult 1 EACH MC ONE (13:42)
== END 2016-10-26 13:43 | disposition home or self-care (01) | DRG 603 ==
LOC: 3ANU 18:38 → EMEROO 18:38 → 3ANU 23:41
PROVIDERS: ADMIT Pediatrics; ATTEND Internal Medicine

== ENCOUNTER 2021-09-30 14:21 | Inpatient (IN) ==
[2021-09-30] MEDS ORDERED: Fluconazole 400 MG/200 ML 400 MG/200 ML BAG IVPB SCH ×2 (17:00)
[2021-09-30] MEDS: Sulfamethoxazole/Trimeth DS 1 EACH TABLET PO SCH (17:24)
[2021-09-30 17:26] LABS: Basophils % 0.2 %; Eosinophils % 0.1 %; Hematocrit 39.4 % (37.5-50.1); Hemoglobin 12.7 g/dL (12.9-16.9); Immature Granulocytes % 0.4 % (0-4); Lymphocytes # 0.8 K/mcL (0.6-4.6); Mean Corpuscular HGB Conc 32.2 g/dL (31.6-35.5); Mean Corpuscular Hemoglobin 28.8 pg (28.0-33.3); Mean Corpuscular Volume 89.3 fL (83.0-100.0); Mean Platelet Volume 8.9 fL (9.4-12.4); Monocytes # 0.7 K/mcL (0.0-1.3); Monocytes % 8.1 %; Platelet Count 346 K/mcL (140-400); Red Blood Count 4.41 M/mcL (4.19-5.50); Red Cell Distribution Width 15.9 % (11.5-14.5); Segmented Neutrophils % 82.2 %; White Blood Count 8.5 K/mcL (4.3-11.1)
[2021-09-30 17:48] LABS: Alanine Aminotransferase 14 Units/L (7-52); Albumin 3.8 g/dL (3.5-5.7); Albumin/Globulin Ratio 1.1 (1.1-2.2); Alkaline Phosphatase 152 Units/L (34-104); Aspartate Amino Transferase 12 Units/L (13-39); BUN/Creatinine Ratio 16 (6-26); Bilirubin,Direct 0.2 mg/dL (0.0-0.2); Bilirubin,Indirect 0.5 mg/dL (0.0-1.0); Bilirubin,Total 0.7 mg/dL (0.3-1.0); Blood Urea Nitrogen 12 mg/dL (6-20); Calcium 8.9 mg/dL (8.6-10.3); Carbon Dioxide 25 mEq/L (23-29); Chloride 100 mEq/L (98-107); Globulin 3.4 g/dL (2.4-3.5); Glucose 112 mg/dL (70-105); Lipase 12 Units/L (11-82); Osmolality,Calculated 267 (280-300); Potassium 3.9 mEq/L (3.5-5.1); Sodium 128 mEq/L (136-145); Total Protein 7.2 g/dL (6.4-8.9); Troponin I 0.03 ng/mL (< 0.04); eGFR For African Americans > 60 (> 60); eGFR For Non-African Americans > 60 (> 60)
[2021-09-30] MEDS ORDERED: 0.9 % Sodium Chloride 1,000 ML IV ONE (17:57)
[2021-09-30 17:58] LABS: Bilirubin,Urine Negative (Negative); Blood,Urine Negative (Negative); Clarity,Urine Clear (Clear); Color,Urine Yellow (Yellow); Glucose,Urine (UA) Normal (Normal); Ketones,Urine Negative (Negative); Leukocyte Esterase,Urine Negative (Negative); Nitrite,Urine Negative (Negative); Protein,Urine Trace mg/dL (Neg-Trace); Specific Gravity,Urine 1.025 (1.010-1.025)
[2021-09-30 18:23] LABS: Influenza A PCR Negative (Negative); Influenza B PCR Negative (Negative); Resp. Syncytial Virus PCR Negative (Negative)
[2021-09-30 18:29] LABS: SARS-CoV-2 by PCR (In House) Positive (Negative)
[2021-09-30] MEDS ORDERED: Acetaminophen 325 MG TABLET PO PRN (20:09)
[2021-09-30] MEDS ORDERED: Naloxone 0.4 MG/ML INJ IVP PRN (20:09)
[2021-09-30] MEDS ORDERED: Ondansetron 4 MG/2 ML VIAL IVP PRN (20:09)
[2021-09-30] MEDS ORDERED: Melatonin 3 MG TABLET PO PRN (20:09)
[2021-09-30] MEDS ORDERED: MOM Conc 10 ML UD.LIQ PO PRN (21:38)
[2021-09-30] MEDS: Ipratropium 1 PUFF INHALER IH SCH (23:36)
[2021-09-30] MEDS ORDERED: Isovue-370 500 ML BOTTLE IVP ONE (23:53)
[2021-10-01] MEDS: Chlorhexidine Rinse 15 ML MOUTHWASH MM SCH ×3 (00:50→23:51)
[2021-10-01] MEDS: Magic Mouthwash 10 ML UD Cup PO SCH ×4 (00:50→16:19)
[2021-10-01 02:31] LABS: Basophils % 0.4 %; Eosinophils % 0.1 %; Hematocrit 41.6 % (37.5-50.1); Immature Granulocytes % 0.4 % (0-4); Lymphocytes # 0.8 K/mcL (0.6-4.6); Lymphocytes % 12.3 %; Mean Corpuscular HGB Conc 31.3 g/dL (31.6-35.5); Mean Corpuscular Volume 92.7 fL (83.0-100.0); Mean Platelet Volume 8.9 fL (9.4-12.4); Monocytes # 0.7 K/mcL (0.0-1.3); Monocytes % 9.8 %; Neutrophils # 5.2 K/mcL (1.6-8.9); Platelet Count 304 K/mcL (140-400); Red Blood Count 4.49 M/mcL (4.19-5.50); Red Cell Distribution Width 16.1 % (11.5-14.5); White Blood Count 6.8 K/mcL (4.3-11.1)
[2021-10-01 02:48] LABS: Alanine Aminotransferase 11 Units/L (7-52); Albumin 3.6 g/dL (3.5-5.7); Albumin/Globulin Ratio 1.2 (1.1-2.2); Alkaline Phosphatase 142 Units/L (34-104); Aspartate Amino Transferase 11 Units/L (13-39); BUN/Creatinine Ratio 18 (6-26); Bilirubin,Total 0.9 mg/dL (0.3-1.0); Blood Urea Nitrogen 12 mg/dL (6-20); Calcium 8.8 mg/dL (8.6-10.3); Carbon Dioxide 22 mEq/L (23-29); Chloride 98 mEq/L (98-107); Globulin 3.1 g/dL (2.4-3.5); Glucose 97 mg/dL (70-105); Magnesium 1.8 mg/dL (1.6-2.6); Osmolality,Calculated 268 (280-300); Potassium 4.1 mEq/L (3.5-5.1); Sodium 129 mEq/L (136-145); Total Protein 6.7 g/dL (6.4-8.9); eGFR For African Americans > 60 (> 60); eGFR For Non-African Americans > 60 (> 60)
[2021-10-01] MEDS: Ipratropium 1 PUFF INHALER IH SCH ×7 (04:04→23:44)
[2021-10-01] MEDS: Pantoprazole 40 MG VIAL IVP SCH (06:38)
[2021-10-01] MEDS: *HR* Enoxaparin 40 MG/0.4 ML SYRINGE SQ SCH (06:39)
[2021-10-01] MEDS: 0.9 % Sodium Chloride 1,000 ML IVC SCH ×2 (07:47→16:22)
[2021-10-01 11:40] LABS: Hepatitis B Surface Antigen Nonreactive (Nonreactive)
[2021-10-01] MEDS: Nicotine 21 MG PATCH.TD24 TD SCH (11:49)
[2021-10-01] MEDS: Ampicillin/Sulbactam 3,000 MG in 0.9 % Sodium Chloride Mini Bag 100 ML IVPB SCH ×3 (11:49→23:55)
[2021-10-01 12:12] LABS: Hepatitis B Core IgM Nonreactive (Nonreactive)
[2021-10-01 12:15] LABS: Hepatitis A Antibody IgM Nonreactive (Nonreactive)
[2021-10-01 14:55] LABS: Hepatitis C Virus Antibody Reactive (Nonreactive)
[2021-10-01] MEDS: Sulfamethoxazole/Trimeth DS 1 EACH TABLET PO SCH (16:19)
[2021-10-01] MEDS ORDERED: Fluconazole 400 MG/200 ML 400 MG/200 ML BAG IVPB SCH (17:00)
[2021-10-02] MEDS: Ipratropium 1 PUFF INHALER IH SCH ×5 (03:48→20:24)
[2021-10-02] MEDS: *HR* Enoxaparin 40 MG/0.4 ML SYRINGE SQ SCH (05:43)
[2021-10-02] MEDS: Pantoprazole 40 MG VIAL IVP SCH (05:43)
[2021-10-02] MEDS: Ampicillin/Sulbactam 3,000 MG in 0.9 % Sodium Chloride Mini Bag 100 ML IVPB SCH ×2 (05:43→14:19)
[2021-10-02 06:31] LABS: BUN/Creatinine Ratio 18 (6-26); Blood Urea Nitrogen 14 mg/dL (6-20); Carbon Dioxide 22 mEq/L (23-29); Chloride 99 mEq/L (98-107); Glucose 99 mg/dL (70-105); Osmolality,Calculated 275 (280-300); Sodium 132 mEq/L (136-145); eGFR For African Americans > 60 (> 60); eGFR For Non-African Americans > 60 (> 60)
[2021-10-02 06:34] LABS: Hematocrit 39.5 % (37.5-50.1); Hemoglobin 12.4 g/dL (12.9-16.9); Mean Corpuscular HGB Conc 31.4 g/dL (31.6-35.5); Mean Corpuscular Hemoglobin 28.1 pg (28.0-33.3); Mean Corpuscular Volume 89.4 fL (83.0-100.0); Mean Platelet Volume 10.1 fL (9.4-12.4); Platelet Count 224 K/mcL (140-400); Red Blood Count 4.42 M/mcL (4.19-5.50); Red Cell Distribution Width 15.9 % (11.5-14.5); White Blood Count 5.8 K/mcL (4.3-11.1)
[2021-10-02] MEDS: Nicotine 21 MG PATCH.TD24 TD SCH (09:30)
[2021-10-02] MEDS: Chlorhexidine Rinse 15 ML MOUTHWASH MM SCH ×2 (09:30→21:29)
[2021-10-02] MEDS: Magic Mouthwash 10 ML UD Cup PO SCH ×2 (09:30→12:35)
[2021-10-02] MEDS ORDERED: Azithromycin 250 MG TABLET PO SCH (14:00)
[2021-10-02] MEDS: Nystatin SUSP 5 ML UD.LIQ PO SCH ×3 (14:56→21:29)
[2021-10-02] MEDS: Sulfamethoxazole/Trimeth DS 1 EACH TABLET PO SCH (17:48)
[2021-10-02 22:04] LABS: Amphetamine Screen,Urine Positive ng/mL (Cutoff=1000); Barbiturate Screen,Urine Negative ng/mL (Cutoff=200); Benzodiazepines Screen,Urine Negative ng/mL (Cutoff=200); Cannabinoid Screen,Urine Positive ng/mL (Cutoff = 50); Cocaine Screen,Urine Negative ng/mL (Cutoff= 300); Opiate Screen,Urine Negative ng/mL (Cutoff=300); Phencyclidine Screen,Urine Negative ng/mL (Cutoff=25)
[2021-10-03] MEDS: Ipratropium 1 PUFF INHALER IH SCH ×4 (00:24→11:04)
[2021-10-03] MEDS: *HR* Enoxaparin 40 MG/0.4 ML SYRINGE SQ SCH (05:41)
[2021-10-03] MEDS: Pantoprazole 40 MG VIAL IVP SCH (06:36)
[2021-10-03] MEDS ORDERED: Fluconazole 100 MG TABLET PO SCH (09:00)
[2021-10-03] MEDS: Chlorhexidine Rinse 15 ML MOUTHWASH MM SCH (09:13)
[2021-10-03] MEDS: Nystatin SUSP 5 ML UD.LIQ PO SCH (09:13)
[2021-10-03] MEDS: Nicotine 21 MG PATCH.TD24 TD SCH (09:13)
[2021-10-03 10:40] VITALS: BP 110/78; PULSE 86; TEMP 98.7; O2SAT 100
== END 2021-10-03 12:21 | disposition home or self-care (01) | DRG 976 ==
LOC: EMEROOARM 14:21 → 3ANU 14:21 → SUATTDRO 18:25 → 3ANU 19:54
PROVIDERS: ADMIT Internal Medicine; ATTEND Internal Medicine